=== PATIENT | female | born 1945 | race Caucasian/White ===

== ENCOUNTER → 2016-10-26 11:00 | Outpatient (CLI) | payer MEDICARE | END | disposition home or self-care (01) | LOC: D.CT 11:00 | DX: R51 Headache (principal) ==

== ENCOUNTER → 2017-11-04 09:06 | Outpatient (CLI) | payer MEDICARE | END | disposition home or self-care (01) | LOC: D.CT 09:06 | DX: M54.12 Radiculopathy, cervical region (principal) ==